=== PATIENT | female | born 1950 | race Caucasian/White ===

== ENCOUNTER 2016-04-19 12:31 | Day surgery (SDC) | payer MEDICARE, MEDICAID ==
[~2016-04-19] VITALS: Ht 154.9 cm; Wt 98.3 kg
[~2016-04-19 12:31] MED LIST: ASPI-664 PO; DIOVAN PO; LIPITOR PO
[2016-04-19 13:53] VITALS: Ht 154.9 cm; Wt 98.3 kg
[2016-04-19] MEDS ORDERED: ROSU20TA PO (14:04)
[2016-04-19] MEDS ORDERED: METF-382 PO (14:04)
[2016-04-19] MEDS ORDERED: LEVO25TA50 PO (14:04)
[2016-04-19] MEDS ORDERED: HYDR12.58 PO (14:04)
[2016-04-19] MEDS ORDERED: NEXUIM (14:04)
[2016-04-19] MEDS ORDERED: EZET10TA3 PO (14:04)
[2016-04-19] MEDS ORDERED: OLME5TAB4 PO (14:04)
[2016-04-19] MEDS ORDERED: LIDOCAINE 2% (SDV) 5 ML INJ ONE (14:59)
[2016-04-19] MEDS ORDERED: PROPOFOL 40 ML ONE (14:59)
[2016-04-19 15:01] VITALS: BP 117/55; PULSE 50; RESP 22
[2016-04-19 15:48] VITALS: BP 120/82; PULSE 49; RESP 19
--- NOTE | 2016-04-19 15:48 | GILP ---
DATE OF PROCEDURE: NAME OF PROCEDURE: Esophagogastroduodenoscopy and biopsy. SURGEON: Twin Goodson MD PREOPERATIVE DIAGNOSIS: Abdominal pain. POSTOPERATIVE DIAGNOSES: 1. Gastritis with erosions. 2. Gastric mucosal biopsies were taken for Helicobacter pylori test. INDICATION FOR THE PROCEDURE: Ms. Joseph Gabriel is a 66-year-old female patient who had upper abd ominal pain not responding to therapy. Patient was scheduled for endoscopic examination for further evaluation. The procedure and possible complications were well explained to the patient. The patient understood and consented to the procedure. DESCRIPTION OF PROCEDURE: Under the influence of anesthesia the gastroscope was carefully introduce d into the esophagus and under direct vision it was advanced to the stomach and through the pylorus, into the duodenal bulb and descending duodenum. FINDINGS: ESOPHAGUS: The mucosa was normal. STOMACH: The patient had gastritis with erosions. Gastric mucosal biopsies were taken for H. pylor i test. DUODENUM: Normal. She tolerated the procedure very well and there was no complication from the procedure. At the end of the procedure she was awake with stable vital signs and she was discharged home to the care of he r family. IMPRESSION: 1. Gastritis with erosions. 2. Gastric mucosal biopsies were taken for Helicobacter pylori test. PLAN: 1. Continue Nexium. 2. Add Zantac 300 mg p.o. at bedtime. 3. Await for H. pylori test report. Dictated By: TWIN RÍOS/SAM Conf#: [id number] DID#: [id number]
--- NOTE | 2016-04-20 09:32 | CONS ---
DATE OF ADMISSION: 04/19/2016 DATE OF CONSULTATION: TYPE OF CONSULTATION: Preoperative gastroenterology. Dear Dr. Sevilla: I thank you very much for this kind referral. HISTORY OF PRESENT ILLNESS: Ms. Harvey Ruiz is a 66-year-old female patient who has been referr ed to me for further evaluation of abdominal pain and change in the bowel habit. The patient states she has epigastric pain and chronic heartburn not responding to therapy with Nexium. She feels blo ated. The patient is known to have had gastritis and gastroesophageal reflux disease. She has been taking baby aspirin a day. Her appetite has been good and there is no history of significant weigh t loss. The patient had cholecystectomy recently. She does not have any right upper quadrant pain, fever, chills, or jaundice. There is no history of liver disease. The patient also complains of c hange in the bowel habit associated with bloating. The patient is known to have had diverticulosis of the colon. She had colonoscopy 3 years ago and no colon neoplasm was identified. She is hyperte nsive. She has diabetes. There is no history of heart disease or lung problem. There is no histor y of kidney disease. She has hyperlipidemia. She also has hypothyroidism. She is status post appe ndectomy. SOCIAL HISTORY: She is a nonsmoker. She does not abuse alcohol. FAMILY HISTORY: Negative for gastrointestinal tract neoplasm. ALLERGIES: THERE IS NO HISTORY OF SIGNIFICANT DRUG ALLERGY. MEDICATIONS: 1. Zetia 10 mg. 2. Crestor 20 mg. 3. Aspirin 81 mg. 4. Nexium 40 mg. 5. Hydrochlorothiazide 25 mg b.i.d. 6. Benicar 12.5 mg. 7. Levothyroxine 25 mcg. 8. Metformin 500 mg. PHYSICAL EXAMINATION: VITAL SIGNS: She is 5 feet 1 inch tall and she weighs 216 pounds. BMI 38. Blood pressure is 146/8 4. HEART: Examination of the heart reveals normal first and second heart sounds. LUNGS: Clear. ABDOMEN: Soft without any distention. Liver and spleen are not palpable. There are no masses. Th ere is no focal tenderness. Normal bowel sounds are heard. CENTRAL NERVOUS SYSTEM: Does not reveal any focal neurological deficit. IMPRESSION: 1. Upper abdominal pain, not responding to therapy with Nexium. 2. The patient also complains of bloating and burping. 3. The patient is on baby aspirin a day. 4. She is status post cholecystectomy. 5. She also complains of change in the bowel habit associated with bloating. 6. The patient had colonoscopy 3 years ago and no colon neoplasm was identified. 7. Diverticulosis of the colon. 8. Hypertension. 9. Diabetes mellitus. 10. Hyperlipidemia. 11. Hypothyroidism. 12. Obesity. PLAN: 1. Continue Nexium. 2. Linzess 145 mcg p.o. daily a.m. before breakfast for constipation and bloating. 3. Abdominal ultrasound for further evaluation of abdominal pain. 4. Endoscopic examination for further evaluation. 5. The patient was strongly advised to lose weight. 6. Dietary consultation was recommended. 7. Follow up with the primary MD for the management of obesity and hypertension. 8. Because of the multiple medical problems and obesity, she will need monitored anesthesia care fo r the procedure. The procedure and possible complications are well explained to the patient. She understands and con sents to the procedures. I thank you once again. With warmest personal regards, Dictated By: TWIN RÍOS/SAM Conf#: [id number] DID#: [id number] CC: TWIN DIAZ MD;*EndCC*
== END 2016-04-19 15:45 | disposition home or self-care (01) ==
LOC: GIL 12:31
PROVIDERS: ATTEND Internal Medicine Gastroenterology
DX: K29.60 Other gastritis without bleeding (principal); I10 Essential (primary) hypertension; E11.9 Type 2 diabetes mellitus without complications; E66.01 Morbid (severe) obesity due to excess calories; Z68.41 Body mass index [BMI] 40.0-44.9, adult; E78.5 Hyperlipidemia, unspecified; E03.9 Hypothyroidism, unspecified
CPT/HCPCS: 82962; 87081